=== PATIENT | female | born 1965 | race Two or more races ===

== ENCOUNTER 2020-07-17 11:45 | Emergency (ER) | payer BC, MEDICAID ==
[~2020-07-17] VITALS: Ht 167.6 cm; Wt 79.4 kg
[2020-07-17] MEDS ORDERED: SODIUM CHLORIDE 0.9% 500 ML IVB ONE (12:15)
[2020-07-17] MEDS ORDERED: PROCHLORPERAZINE EDISYLATE 5 MG/ML 2ML VIAL IV ONE (12:15)
[2020-07-17 14:19] LABS: Basophils # (auto) 0 10 ^3/uL (0-0.2); Basophils % (auto) 0.3 % (0.0-2.0); Eosinophils # (auto) 0 10 ^3/uL (0-0.8); Hemoglobin 11.4 g/dL (12.2-16.2); Lymphocytes # (auto) 0.8 10 ^3/uL (0.4-5.4); Monocytes # (auto) 0.3 10 ^3/uL (0-1.3); Monocytes % (auto) 3.5 % (0.0-12.0); Neutrophils % (auto) 87.5 % (37.0-80.0)
[2020-07-17 14:21] LABS: Eosinophils % (auto) 0.1 % (0.0-7.0); Lymphocytes % (auto) 8.6 % (10.0-50.0); Mean Corpuscular Hemoglobin 26.4 pg (28.0-32.0); Mean Corpuscular Hgb Conc. 32.5 g/dL (32.0-36.0); Mean Corpuscular Volume 81.1 fL (80.0-100.0); Neutrophils # (auto) 7.8 10 ^3/uL (1.6-8.6); Platelet Count (auto) 313 10^3/uL (140-450); Red Blood Cells 4.32 10^6/uL (4.0-5.20); Red Cell Distribution Width 14.9 % (11.8-14.3); White Blood Cell 8.9 10^3/uL (4.4-10.8)
[2020-07-17 14:38] LABS: Albumin 3.3 g/dL (3.4-5.0); Anion Gap 7 (5-15); Blood Urea Nitrogen 10 mg/dL (7-18); Calcium 8.2 mg/dL (8.5-10.1); Carbon Dioxide 26 mmol/L (21-32); Chloride 107 mmol/L (98-107); Glucose 134 mg/dL (74-106); Magnesium 2.2 mg/dL (1.6-2.6); Potassium 3.9 mmol/L (3.5-5.1); Sodium 140 mmol/L (136-145)
[2020-07-17 14:43] LABS: Alanine Aminotransferase 20 U/L (13-56); Alkaline Phosphatase 113 U/L (45-117); Aspartate Aminotransferase 16 U/L (15-37); BUN/Creatinine Ratio 18.5; Bilirubin, Total 0.2 mg/dL (0.2-1.0); GFR African American 151 mL/min; GFR Non-African American 125 mL/min; Total Protein 6.8 g/dL (6.4-8.2)
[2020-07-17 14:48] VITALS: BP 109/69
== END 2020-07-17 17:17 | disposition home or self-care (01) ==
LOC: ER 11:45 → EDBD 11:45 → ER 17:17
DX: B34.9 Viral infection, unspecified (principal); R11.2 Nausea with vomiting, unspecified; E11.9 Type 2 diabetes mellitus without complications; Z90.49 Acquired absence of other specified parts of digestive tract; Z90.710 Acquired absence of both cervix and uterus; Z88.0 Allergy status to penicillin; Z88.2 Allergy status to sulfonamides
CPT/HCPCS: 36415; 71045; 74176; 80053; 83690; 83735; 84484; 85025; 93005; 96361; 96374; 99285; J0780

== ENCOUNTER 2020-08-08 11:18 | Emergency (ER) | payer MEDICAID ==
[~2020-08-08] VITALS: Ht 160 cm; Wt 81.6 kg
[2020-08-08] MEDS ORDERED: traMADol HCL 50 MG TAB PO ONE (15:15)
[2020-08-08 15:17] VITALS: BP 120/75
== END 2020-08-08 16:23 | disposition home or self-care (01) ==
LOC: ER 11:18
DX: S33.5XXA Sprain of ligaments of lumbar spine, initial encounter (principal); N20.0 Calculus of kidney; E11.9 Type 2 diabetes mellitus without complications; Z90.49 Acquired absence of other specified parts of digestive tract; Z90.710 Acquired absence of both cervix and uterus; Z88.0 Allergy status to penicillin; X58.XXXA Exposure to other specified factors, initial encounter; Y93.89 Activity, other specified; Y92.89 Other specified places as the place of occurrence of the external cause; Y99.8 Other external cause status
CPT/HCPCS: 74176; 81002

== ENCOUNTER 2022-09-06 15:38 | Emergency (ER) | payer MEDICAID ==
[~2022-09-06] VITALS: Ht 160 cm; Wt 77.2 kg
[2022-09-06 15:59] LABS: Basophils # (auto) 0.1 10 ^3/uL (0-0.2); Basophils % (auto) 0.7 % (0.0-2.0); Eosinophils # (auto) 0.1 10 ^3/uL (0-0.8); Hematocrit 38.8 % (36.0-46.0); Hemoglobin 12.7 g/dL (12.2-16.2); Lymphocytes # (auto) 2.1 10 ^3/uL (0.4-5.4); Lymphocytes % (auto) 28.8 % (10.0-50.0); Mean Corpuscular Hemoglobin 28.4 pg (28.0-32.0); Mean Corpuscular Hgb Conc. 32.8 g/dL (32.0-36.0); Mean Corpuscular Volume 86.4 fL (80.0-100.0); Monocytes # (auto) 0.6 10 ^3/uL (0-1.3); Monocytes % (auto) 7.9 % (0.0-12.0); Neutrophils # (auto) 4.4 10 ^3/uL (1.6-8.6); Neutrophils % (auto) 61.6 % (37.0-80.0); Red Blood Cells 4.49 10^6/uL (4.0-5.20); Red Cell Distribution Width 14.1 % (11.8-14.3); White Blood Cell 7.2 10^3/uL (4.4-10.8)
[2022-09-06 16:13] LABS: INR 0.94 (0.9-1.15)
[2022-09-06 16:19] LABS: Albumin 3.9 g/dL (3.4-5.0); Calcium 8.5 mg/dL (8.5-10.1); Magnesium 2.5 mg/dL (1.6-2.6)
[2022-09-06 16:22] LABS: BUN/Creatinine Ratio 16.9 (10.0-20.0); Bilirubin, Total 0.2 mg/dL (0.2-1.0); Total Protein 6.8 g/dL (6.4-8.2)
[2022-09-06 20:03] VITALS: BP 122/78
[2022-09-06] MEDS ORDERED: KETOROLAC TROMETH 60MG/2ML VIAL IM ONE (20:45)
[2022-09-06] MEDS ORDERED: LORazepam 2MG/ML-1ML VIAL IM ONE (20:45)
[2022-09-06] MEDS ORDERED: CYCL-839 PO (20:55)
== END 2022-09-06 21:30 | disposition home or self-care (01) ==
LOC: ER 15:38
DX: M94.0 Chondrocostal junction syndrome [Tietze] (principal); I10 Essential (primary) hypertension; E11.9 Type 2 diabetes mellitus without complications
CPT/HCPCS: 36415; 71045; 80053; 83735; 83880; 84484; 85025; 85610; 85730; 93005; 96372; 99285; J1885; J2060

== ENCOUNTER 2024-12-10 21:35 | Inpatient (IN) | payer MEDICAID ==
[~2024-12-10] VITALS: Ht 162.6 cm; Wt 87.4 kg
[~2024-12-10 21:35] MED LIST: CYCL-839 PO
--- NOTE | 2024-12-10 21:55 | ED.PDOC ---
Musculoskeletal HPI Comments 59-year-old female that came to ER via EMS for lower extremity issues. History of diabetes, states for the past 3 days she has been having lower back pain. Few hours ago, started experiencing weakness on her left lower extremity, unable to stand on it, with a associated leg cramping and urinary incontinence. Blood sugar on scene was 202. Patient does have history of chronic back issues, she denies any fever, chills, night sweats, groin numbness, history of cancer, history of back procedure. REVIEW OF SYSTEMS: General: No fever, no chills, or fatigue HEENT: No sore throat, no earache, no congestion, no neck pain. Cardiac: No chest pain. No palpitations. Lungs: No shortness of breath, no cough. GI: No nausea, no vomiting, no diarrhea, no constipation, no abdominal pain : No dysuria, frequency, or urgency. No hematuria. (+) incontinence Musculoskeletal: No joint pain , no joint swelling, no extremity edema. (+) back pain, (+) LLE weakness Skin: No rash, no itching. Neuro: No headache, no dizziness, no weakness EXAM: General: Awake, alert and oriented. No acute distress. Skin: Skin in warm, dry and intact. Appropriate color for ethnicity. HEENT: The head is normocephalic and atraumatic. Conjunctivae are clear without exudates or hemorrhage. Sclera is non-icteric. EOM are intact. No signs of nystagmus. Eyelids are normal in appearance without swelling or lesions. Oral mucosa is pink and moist Neck: The neck is supple with normal range of motion. No JVD. Cardiac: Heart rate and rhythm are normal. No murmurs, gallops, or rubs are auscultated. Respiratory: No signs of respiratory distress. Lung sounds are clear in all lobes bilaterally without rales, rhonchi, or wheezes. Abdominal: Abdomen is soft, non-tender without distention. Bowel sounds are present and normoactive in all four quadrants. Extremities: Upper and lower extremities are atraumatic in appearance without deformity or edema. Neurological: The patient is awake, alert and oriented to person, place, and time with normal speech. Speech is clear. There is no facial asymmetry. Sensation in face, upper extremities and lower extremities intact and symmetric bilaterally. Strength 2/5 LLE. Strength 5/5 in B/L UE, RLE. Psychiatric: Appropriate mood and affect. Good judgement and insight Chief Complaint: Lower Extremity Time Seen by MD: 22:00 Primary Care Provider: LEBRON Elizabeth Notes: Software Quality Assurance Analyst Notes Allergies: Uncoded Allergies: PENICILLIN (Allergy, Unknown, 08/12/20) SULFA (Allergy, Unknown, 08/12/20) Home Meds Active Scripts Cyclobenzaprine Hcl (Cyclobenzaprine Hcl) 10 Mg Tab, 10 MG PO Q8HPRN PRN, #20 TAB Prov:TOBY SOLORZANO MD 09/06/22 Information Source: Patient, Emergency Med Personnel Mode of Arrival: EMS Extremity Location: Leg (Left lower) Past Medical History PAST MEDICAL HISTORY: Arthritis, CVA, DM Past Medical History (Other): Bulging disc Surgical History: Cholecystectomy, Hysterectomy HEARING CARE PRACTITIONER History: No Pertinent HEARING CARE PRACTITIONER History Family History Family History: Family hx of DM Social History Smoker: Non-Smoker Alcohol: Denies ETOH Use Drugs: Denies Drug Use Lives In: Home Was a procedure done? Was a procedure done?: No Differential Diagnosis EXT Differential Diagnosis: Sprain, Strain, Neurovascular injury, Arthritis, Other (Chronic back pain, cauda equina syndrome, spinal stenosis, CVA, neurologic disorder, electrolyte imbalance, other) X-Ray, Labs, Meds, VS Vital Signs Date Time Temp Pulse Resp B/P (MAP) Pulse Ox O2 Delivery O2 Flow Rate FiO2 12/10/24 21:35 97.7 105 18 121/70 98 97.7 Lab Test 12/10/24 22:19 Range/Units White Blood Count 6.3 4.4-10.8 10^3/uL Red Blood Count 4.11 4.0-5.20 10^6/uL Hemoglobin 12.6 12.2-16.2 g/dL Hematocrit 37.2 36.0-46.0 % Mean Corpuscular Volume 90.4 80.0-100.0 fL Mean Corpuscular Hemoglobin 30.5 28.0-32.0 pg Mean Corpuscular Hemoglobin Concent 33.8 32.0-36.0 g/dL Red Cell Distribution Width 13.7 11.8-14.3 % Platelet Count 258 140-450 10^3/uL Mean Platelet Volume 9.3 6.9-10.8 fL Neutrophils (%) (Auto) 63.8 37.0-80.0 % Lymphocytes (%) (Auto) 24.4 10.0-50.0 % Monocytes (%) (Auto) 9.8 0.0-12.0 % Eosinophils (%) (Auto) 1.6 0.0-7.0 % Basophils (%) (Auto) 0.4 0.0-2.0 % Neutrophils # (Auto) 4.0 1.6-8.6 10 ^3/uL Lymphocytes # (Auto) 1.5 0.4-5.4 10 ^3/uL Monocytes # (Auto) 0.6 0-1.3 10 ^3/uL Eosinophils # (Auto) 0.1 0-0.8 10 ^3/uL Basophils # (Auto) 0 0-0.2 10 ^3/uL Nucleated Red Blood Cells 0.0 % Sodium Level 146 H 136-145 mmol/L Potassium Level 3.5 3.5-5.1 mmol/L Chloride Level 111 H 98-107 mmol/L Carbon Dioxide Level 25 20-31 mmol/L Anion Gap 10 5-15 Blood Urea Nitrogen 12 9-23 mg/dL Creatinine 0.73 0.550-1.02 mg/dL Glomerular Filtration Rate Calc 94 >90 mL/min BUN/Creatinine Ratio 16.4 10.0-20.0 Serum Glucose 65 L 74-106 mg/dL Hemoglobin A1c Pending Calcium Level 9.3 8.7-10.4 mg/dL Total Bilirubin 0.2 0.2-1.0 mg/dL Aspartate Amino Transferase (AST) 21 13-40 U/L Alanine Aminotransferase (ALT) 20 7-40 U/L Alkaline Phosphatase 119 H 46-116 U/L C-Reactive Protein High Sensitivity 0.06 <1.0 mg/dL Total Protein 6.9 5.7-8.2 g/dL Albumin 4.3 3.2-4.8 g/dL Current Medications Medications (Trade) Dose Ordered Sig/Cheryl Route Start Time Stop Time Status Last Admin Methylprednisolone Sodium Succinate (Solu Medrol) 125 mg ONCE ONCE IV 12/10/24 22:00 12/10/24 22:01 DC 12/10/24 23:57 Sodium Chloride 1,000 ml @ 1,000 mls/hr Q1H ONCE IV 12/10/24 22:00 12/10/24 22:59 DC 12/10/24 23:57 Time of 1ST Reevaluation: 21:57 Reevaluation 1ST: Unchanged Patient Education/Counseling: Need For Follow Up Family Education/Counseling: No Family Present Departure 1 Departure Time of Disposition: 23:35 Impression: Primary Impression: Left leg weakness Disposition: ADMITTED INPATIENT Condition: Stable Comments 59-year-old female with left lower extremity weakness. No other weakness, vision changes or speech changes. Sensation intact. CT head without contrast negative for CVA. CT lumbar spine negative for any Sign of spinal stenosis. Patient admitted to hospitalist service for further treatment, evaluation and monitoring. Extensive evaluation was performed in attempt to identify or rule out: (See differential diagnosis section) The following tests were ordered, and results were reviewed by me and discussed with patient: (See diagnostic results section) Additional information was gathered from interviewing the following independent historians: EMS personnel Decision regarding hospitalization or escalation of hospital level of care: Risk and benefits of admission for further treatment of patient's condition was considered. Due to patient's current clinical condition, high risk of decline and poor outcome if discharged and need for further inpatient management and monitoring, patient will be admitted to the hospital. Discussed with patient. Critical Care Note Critical Care Time?: No Stability Stability form required: No Heart Score Heart Score: Heart Score Response (Comments) Value History N/A 0 EKG N/A 0 Age N/A 0 Risk Factors N/A 0 Troponin N/A 0 Total 0 I personally scribed for JONO MILLS MD ([email or web address]) on 12/10/24 at 21:55. Electronically submitted by Nathaniel Murguia ([facility]). I personally scribed for JONO MILLS MD ([email or web address]) on 12/10/24 at 22:01. Electronically submitted by Nathaniel Murguia ([facility]). JONO MILLS MD Dec 10, 2024 21:55
[2024-12-10 22:28] LABS: Hematocrit 37.2 % (36.0-46.0); Hemoglobin 12.6 g/dL (12.2-16.2); Mean Corpuscular Hemoglobin 30.5 pg (28.0-32.0); Mean Corpuscular Volume 90.4 fL (80.0-100.0); Nucleated Red Blood Cells % 0.0 %
--- NOTE | 2024-12-10 22:43 | DVH ---
EXAM: CT HEAD WITHOUT CONTRAST INDICATION: Low back pain, LLE weakness, incontinence. r/o CVA/MAss TECHNIQUE: CT of the head without intravenous contrast. Radiation Dose Information: CT Dose: CTDI volume is 54.4 mGy. Dose-length product is 963.24 mGy*cm The dose indicators for CT are the volume Computed Tomography (CT) Dose Index (CTDIvol) and the Dose Length Product (DLP), and are measured in units of mGy and mGy-cm, respectively. These indicators are not patient dose, but values generated from the CT scanner acquisition factors. The report includes radiation exposure data for exposures received during this examination. COMPARISON: None FINDINGS: There is no evidence of acute intracranial hemorrhage, extra-axial collection, mass effect, midline s hift, herniation or hydrocephalus. The ventricles, sulci and cisterns are age appropriate. The navarro-white differentiation is intact. The visualized paranasal sinuses and mastoid air cells are clear. The surrounding soft tissues and osseous structures are unremarkable. IMPRESSION: 1. No acute intracranial abnormality.
--- NOTE | 2024-12-10 22:45 | DVH ---
CT LS SPINE WO CONTRAST Date: 12/10/2024 10:05 PM History: Low back pain, LLE weakn, incontinence, r/o CE, SEA Comparison: None TECHNIQUE: Multiple axial CT images of the lumbosacral spine were obtained using bone algorithm. Axial and coron al reformatting was done. Bone and soft tissue windows were reviewed. Radiation Dose Information: CT Dose: CTDI volume is 37.84 mGy. Dose-length product is 1312.75 mGy*cm FINDINGS: No CT evidence of definite acute fracture, spinal dislocation, or significant appearing acute subluxa tion is seen. The visualized paraspinal soft tissues are grossly unremarkable. T12-L1 There is no evidence of central spinal canal or neuroforaminal stenosis. L1-L2 There is no evidence of central spinal canal or neuroforaminal stenosis. L2-L3 There is no evidence of central spinal canal or neuroforaminal stenosis. L3-L4 There is no evidence of central spinal canal or neuroforaminal stenosis. L4-L5 There is no evidence of central spinal canal or neuroforaminal stenosis. L5-S1 There is no evidence of central spinal canal or neuroforaminal stenosis. IMPRESSION: 1. No definite CT evidence of acute fracture or dislocation of the bony lumbar spine. 2. All CT scans at this medical facility are performed using dose modulation techniques as appropriate to a performed exam including the following: Automated exposure control was utilized; adjustment of t he MA and/or KV according to patient size; and use of iterative reconstruction technique.
[2024-12-10 22:54] LABS: Alanine Aminotransferase 20 U/L (7-40); Albumin 4.3 g/dL (3.2-4.8); Anion Gap 10 (5-15); BUN/Creatinine Ratio 16.4 (10.0-20.0); Blood Urea Nitrogen 12 mg/dL (9-23); Calcium 9.3 mg/dL (8.7-10.4); Carbon Dioxide 25 mmol/L (20-31); Potassium 3.5 mmol/L (3.5-5.1); Total Protein 6.9 g/dL (5.7-8.2)
[2024-12-10 23:01] LABS: Alkaline Phosphatase 119 U/L (46-116); Bilirubin, Total 0.2 mg/dL (0.2-1.0); Chloride 111 mmol/L (98-107); Glucose 65 mg/dL (74-106); Sodium 146 mmol/L (136-145)
[2024-12-10] MEDS: SODIUM CHLORIDE 0.9% 1,000 ML IV ONE (23:57)
[2024-12-10] MEDS: methylPREDNISolone SOD SUCC 125 MG/2 ML VL IV ONE (23:57)
--- NOTE | 2024-12-10 23:59 | DVHHPRES ---
History of Present Illness Resident Creating Document: ROXANE HARMAN History of Present Illness Flavia Celis is a 59-year-old female patient who presents to ED with chief complaint of left lower limb heaviness, weakness, cramping, erythema and pain which was triggered after she was walking in her home, she felt she had no control her lower left limb and could not stand up, prompting her visit. Patient does mention recent long trip which she just got back from today (over 12 hours), where she stopped multiple times due to urinary frequency/urinary incontinence. Denies any other associated symptoms (dyspnea, chest pain and fever) Past medical history: Arthritis, fibromyalgia, diabetes, questionable IBS, hiatal hernia, peptic ulcer, colonic tear which was bleeding and required colonoscopic treatment in [place], multiple UTIs Surgical history: Cholecystectomy, hysterectomy, 2014 gastric bypass, C-sections x2, colonoscopy two years ago with treatment of colonic tear Family history: CVA in brother and mother, mother also has heart disease, multiple family members have diabetes Social history: [place] (next of kin is her brother). Denies current tobacco, alcohol and other drug abuse Allergies: Seasonal, penicillin and sulfa antibiotics. Home medication: Motrin p.r.n. , multivitamin Patient seen and examined at bedside. Currently has no new complaints. Still presents weakness in lower left limb Past Medical History Per HPI Past Surgical History Per HPI Family History Per HPI Past Social History Per HPI Review of Systems Review of Systems Per HPI Allergies: Uncoded Allergies: PENICILLIN (Allergy, Unknown, 08/12/20) SULFA (Allergy, Unknown, 08/12/20) Exam Vital Signs Vital Signs Date Time Temp Pulse Resp B/P (MAP) Pulse Ox O2 Delivery O2 Flow Rate FiO2 12/10/24 21:35 97.7 105 18 121/70 98 97.7 Exam Patient lying in bed, in no acute distress General: Lucid, afebrile, mucosae are moist Cardiovascular: Normal S1 and S2. No murmurs, gallops or rubs Respiratory: Normal ventilation mechanics. Clear lung sounds on auscultation Abdomen: Soft, nontender, no organomegaly, normal bowel sounds MSK/skin: Mobilizes 4 limbs. Skin is dry and warm. Bilateral infrapatellar lower limb swelling with pitting edema +1, nor erythema, can mobilize with no problem. Neurological: Oriented in 3 spheres. No motor no sensitive deficits. Pupils are isocoric and reactive Labs/Xrays Labs Test 12/10/24 22:19 Range/Units White Blood Count 6.3 4.4-10.8 10^3/uL Red Blood Count 4.11 4.0-5.20 10^6/uL Hemoglobin 12.6 12.2-16.2 g/dL Hematocrit 37.2 36.0-46.0 % Mean Corpuscular Volume 90.4 80.0-100.0 fL Mean Corpuscular Hemoglobin 30.5 28.0-32.0 pg Mean Corpuscular Hemoglobin Concent 33.8 32.0-36.0 g/dL Red Cell Distribution Width 13.7 11.8-14.3 % Platelet Count 258 140-450 10^3/uL Mean Platelet Volume 9.3 6.9-10.8 fL Neutrophils (%) (Auto) 63.8 37.0-80.0 % Lymphocytes (%) (Auto) 24.4 10.0-50.0 % Monocytes (%) (Auto) 9.8 0.0-12.0 % Eosinophils (%) (Auto) 1.6 0.0-7.0 % Basophils (%) (Auto) 0.4 0.0-2.0 % Neutrophils # (Auto) 4.0 1.6-8.6 10 ^3/uL Lymphocytes # (Auto) 1.5 0.4-5.4 10 ^3/uL Monocytes # (Auto) 0.6 0-1.3 10 ^3/uL Eosinophils # (Auto) 0.1 0-0.8 10 ^3/uL Basophils # (Auto) 0 0-0.2 10 ^3/uL Nucleated Red Blood Cells 0.0 % Sodium Level 146 H 136-145 mmol/L Potassium Level 3.5 3.5-5.1 mmol/L Chloride Level 111 H 98-107 mmol/L Carbon Dioxide Level 25 20-31 mmol/L Anion Gap 10 5-15 Blood Urea Nitrogen 12 9-23 mg/dL Creatinine 0.73 0.550-1.02 mg/dL Glomerular Filtration Rate Calc 94 >90 mL/min BUN/Creatinine Ratio 16.4 10.0-20.0 Serum Glucose 65 L 74-106 mg/dL Calcium Level 9.3 8.7-10.4 mg/dL Total Bilirubin 0.2 0.2-1.0 mg/dL Aspartate Amino Transferase (AST) 21 13-40 U/L Alanine Aminotransferase (ALT) 20 7-40 U/L Alkaline Phosphatase 119 H 46-116 U/L C-Reactive Protein High Sensitivity 0.06 <1.0 mg/dL Total Protein 6.9 5.7-8.2 g/dL Albumin 4.3 3.2-4.8 g/dL SEPSIS Sepsis Screen Date sepsis recognized/suspect: Dec 10, 2024 Time Sepsis recognized/suspect: 2134 Recent Procedure: No On Antibiotic Therapy: No Respiratory Rate >20: No Heart Rate >90: Yes Temp<36 C (96.8 F) or >38.3 C: No SBP <90 or MAP <65 mmHG: No New Acute Mental Status Change: No Is the patient on CPAP, BIPAP,: No Physician Orders Head Without Contrast (12/10/24 21:56) Ls Spine Wo Contrast (12/10/24 21:56) Urinalysis (12/10/24 21:56) Admit (12/10/24 23:55) Code Status (12/10/24 23:55) Complete Blood Count (12/11/24 04:00) Comprehensive Metabolic Panel (12/11/24 04:00) Npo (Nothing By Mouth) Diet (12/11/24 Breakfast) Echo 2d Mode Cardiac Dop (12/10/24 23:55) Carotid Duplx W Color Dop (12/10/24 23:55) Lovenox 40mg (12/11/24 10:00) Oxygen By Nasal Cannula (12/10/24 23:55) Stat Ekg For Chest Pain (12/10/24 23:55) Notify Of Changes From Base (12/10/24 23:55) Rubber Splicer For 24 Hours (12/10/24 23:55) Emergency Dysrhythmia Protocol (12/10/24 23:55) Rhythm Strips Once Every Shift (12/10/24 23:55) Vital Signs Date Time Temp Pulse Resp B/P (MAP) Pulse Ox O2 Delivery O2 Flow Rate FiO2 12/10/24 21:35 97.7 105 18 121/70 98 97.7 Laboratory Tests Test 12/10/24 22:19 White Blood Count 6.3 10^3/uL (4.4-10.8) Assessment/Plan Assessment/Plan Questionable CVA Ruled out hemorrhagic stroke Ruled out cauda equina syndrome Completed head CT which ruled out acute intracranial pathology Completed lumbar spine CT which ruled out severe stenosis If deemed necessary, we will evaluate need for MRI. Currently patient's symptoms have improved dramatically Initiated aspirin atorvastatin, evaluate requirement of continued this treatment. Patient does have history of peptic ulcer. Rule out bilateral lower limb DVT Patient had recent long travel. Questionable UTI History of multiple UTIs Ordered urine analysis Hypernatremia Hyperchloremia Mild hypoglycemia Currently on D5W Monitor BNP Fibromyalgia Questionable IBS Status post gastric bypass surgery 2013 Hiatal hernia Peptic ulcer History of colonic tear status post colonoscopy treatment Patient currently on pantoprazole IV b.i.d. Indicated enoxaparin for DVT prophylaxis. Patient does have history of GI bleed, we will monitor H&H Optimize pain management Diabetes -controlled (hemoglobin A1c 6.5%) Currently on insulin sliding scale mild (had a reading of hypoglycemia (65) Goals of care discussed with patient for over 18 minutes: Full code status Discussed plan with Dr. Mackay, patient and nurses: Patient will be admitted to telemetry, questionable CVA, head CT was negative. Ordered lower limb ultrasound to rule out DVT. Optimizing electrolytes. Plan discussed with: Patient, Daughter, Other (Nurses) My Orders Orders - ROXANE HARMAN RESIDENT Procedure Category Date Status Time Admit ADMIT 12/10/24 Verified 23:55 Code Status CODE 12/10/24 Verified 23:55 Complete Blood Count LAB 12/11/24 Verified 04:00 Comprehensive LAB 12/11/24 Verified Metabolic Panel 04:00 Npo (Nothing By DIET 12/11/24 Verified Mouth) Diet Breakfast Echo 2d Mode Cardiac US 12/10/24 Verified DOP 23:55 Carotid Duplx W Color US 12/10/24 Verified DOP 23:55 Lovenox 40mg PHA 12/11/24 Verified 10:00 Oxygen By Nasal RT 12/10/24 Verified Cannula 23:55 Stat Ekg For Chest [facility] 12/10/24 Verified Pain 23:55 Notify Of Changes [facility] 12/10/24 Verified From Base 23:55 Rubber Splicer For [facility] 12/10/24 Verified 24 Hours 23:55 Emergency Dysrhythmia [facility] 12/10/24 Verified Protocol 23:55 Rhythm Strips Once [facility] 12/10/24 Verified Every Shift 23:55 Date of Service: Dec 10, 2024 Billing Provider: RANDA MACKAY MD Common Visit Codes: 51854-QVMPKFA INP/OBS CARE (HIGH) Secondary Visit Codes: [id number]-[id number] CARE PLAN 30 MINUTES ROXANE HARMAN RESIDENT Dec 10, 2024 23:58
[2024-12-11] MEDS: D5W 5% 1,000 ML IV SCH (00:45)
[2024-12-11 00:56] LABS: INR 0.97 (0.9-1.15); Partial Thromboplastin Time 22.4 SEC (24.5-34.5); Prothrombin Time 10.3 sec (9.3-11.8)
--- NOTE | 2024-12-11 01:01 | DVH ---
CHEST RADIOGRAPH Indication: Presyncope Technique: Single frontal view of the chest was obtained COMPARISON: XY CHEST XRAY 1 VIEW on DOS: 09/06/22, CHEST PORTABLE on DOS: 07/17/20 FINDINGS: Lines and Tubes: None Lungs: Clear Pleura: No effusion. No pneumothorax. Cardiomediastinal contours: Unremarkable Bones: Unremarkable IMPRESSION: 1. No acute disease.
[2024-12-11 01:46] LABS: Magnesium 2.0 mg/dL (1.6-2.6)
[2024-12-11 01:48] LABS: Lipase 54.0 U/L (12-53)
[2024-12-11 01:58] LABS: Triglycerides 88.0 mg/dL (< 150)
[2024-12-11 02:00] LABS: Cholesterol 129.0 mg/dL (< 200); HDL Cholesterol 49.0 mg/dL (40-59)
[2024-12-11] MEDS ORDERED: DEXTROSE (50%) 50ML SYRG IV PRN ×2 (02:30→21:45)
[2024-12-11] MEDS: PANTOPRAZOLE 40 MG/10 ML VIAL INJ IV ONE (02:51)
[2024-12-11 04:33] LABS: Hematocrit 38.2 % (36.0-46.0); Hemoglobin 12.9 g/dL (12.2-16.2); Mean Corpuscular Hemoglobin 30.5 pg (28.0-32.0); Mean Corpuscular Volume 90.5 fL (80.0-100.0); Nucleated Red Blood Cells % 0.0 %
[2024-12-11 04:42] LABS: Alanine Aminotransferase 20 U/L (7-40); Albumin 4.4 g/dL (3.2-4.8); Alkaline Phosphatase 112 U/L (46-116); Anion Gap 12 (5-15); BUN/Creatinine Ratio 14.1 (10.0-20.0); Calcium 9.0 mg/dL (8.7-10.4); Carbon Dioxide 21 mmol/L (20-31); Potassium 4.0 mmol/L (3.5-5.1); Sodium 142 mmol/L (136-145); Total Protein 7.0 g/dL (5.7-8.2)
[2024-12-11 04:50] LABS: Bilirubin, Total 0.2 mg/dL (0.2-1.0); Blood Urea Nitrogen 9 mg/dL (9-23); Chloride 109 mmol/L (98-107); Glucose 196 mg/dL (74-106)
[2024-12-11 05:14] LABS: Urine Protein, UAD Negative (Negative)
[2024-12-11 05:22] LABS: Amphetamine Screen, Urine Neg (NEGATIVE); Barbiturate Scree,Urine Neg (NEGATIVE); Benzodiazephine Screen, Urine Neg (NEGATIVE); Cannabinoid Screen, Urine Neg (NEGATIVE); Cocaine Screen, Urine Neg (NEGATIVE); Opiate Scree,Urine Neg (NEGATIVE); Phencyclidine Screen, Urine Neg (NEGATIVE)
[2024-12-11 05:31] VITALS: BP 106/63; PULSE 65; RESP 15; RESP 16; TEMP 97.5; O2SAT 92
[2024-12-11] MEDS: InsuLIN REG 1unit/0.01ml Soln (100units/ml) SC SCH ×2 (07:00→22:44)
[2024-12-11] MEDS: ACCU-CHEK COMFORT CURVE STRIP VI SCH ×2 (07:00→22:37)
[2024-12-11 07:30] VITALS: PULSE 65; RESP 18; O2SAT 97
[2024-12-11] MEDS: ENOXAPARIN SOD 40 MG/0.4 ML SYRINGE SC SCH (09:54)
[2024-12-11] MEDS: PANTOPRAZOLE 40 MG/10 ML VIAL INJ IV SCH (09:54)
[2024-12-11] MEDS ORDERED: ONDANSETRON HCL 4 MG/2 ML VIAL IV PRN (11:00)
--- NOTE | 2024-12-11 12:32 | DVH ---
INDICATION: UTI TECHNIQUE: Multiple real-time sonographic images of the kidneys and bladder were obtained. COMPARISON: None FINDINGS: RIGHT KIDNEY: Measures 11 cm. Normal in echogenicity. No mass. No urinary stones. No hydronephrosis. LEFT KIDNEY: Measures 10.7 cm. Normal in echogenicity. No mass. No urinary stones. No hydronephrosi s. BLADDER: unremarkable. IMPRESSION: 1. Unremarkable examination of the kidneys.
--- NOTE | 2024-12-11 12:44 | DVH ---
Bilateral lower extremity venous duplex Clinical History: Bilateral lower limb swelling Comparison: None Technique: Duplex Doppler evaluation of the deep venous systems of both lower extremities from the common femora l veins to the popliteal veins including color Doppler and spectral/pulsed waveform analysis was perf ormed. Findings: RIGHT SIDE: The common femoral vein demonstrates appropriate compressibility and waveform variability. There is compressibility/patency of the great saphenous vein at the proximal thigh. The femoral vein demonstrates appropriate compressibility and waveform variability. The deep femoral vein demonstrates appropriate compressibility and waveform variability. The popliteal vein demonstrates appropriate compressibility and waveform variability. There is normal compressibility at the tibioperoneal trunk. LEFT SIDE: The common femoral vein demonstrates appropriate compressibility and waveform variability. There is compressibility/patency of the great saphenous vein at the proximal thigh. The femoral vein demonstrates appropriate compressibility and waveform variability. The deep femoral vein demonstrates appropriate compressibility and waveform variability. The popliteal vein demonstrates appropriate compressibility and waveform variability. There is normal compressibility at the tibioperoneal trunk. Impression: 1. No right or left femoropopliteal venous thrombosis.
--- NOTE | 2024-12-11 12:44 | DVH ---
Carotid Duplex Date: 12/11/2024 11:59 AM Clinical History: presyncope Comparison: None Technique: Duplex Doppler evaluation of the extracranial carotid and vertebral arteries including col or Doppler and spectral/pulsed waveform analysis was performed. Findings: RIGHT SIDE: The peak systolic velocities are 75 cm/s in the distal CCA and 116 cm/s in the proximal ICA.The ICA/C CA ratio is 1.5. The external carotid artery is patent with peak systolic velocity of 74 cm/s proximally. There is appropriate antegrade flow in the right vertebral artery. LEFT SIDE: The peak systolic velocities are 86 cm/s in the distal CCA and 72 cm/s in the proximal ICA. The ICA/ CCA ratio is 0.8. The external carotid artery is patent with peak systolic velocity of 98 cm/s proximally. There is appropriate antegrade flow in the left vertebral artery. IMPRESSION: 1. No hemodynamically significant stenosis noted in the right carotid system. 2. No hemodynamically significant stenosis noted in the left carotid system. 3. Reference: Radiology 2003; [id number]
--- NOTE | 2024-12-11 13:22 | DVHPN2 ---
Subjective c/o cramps and weakness in left lower extremity intermittently/no recent trauma/remote fall/ also c/o frequency of urination Changes from previous H/P or p: No Changes Objective Vitals Vital Signs Date Time Temp Pulse Resp B/P (MAP) Pulse Ox O2 Delivery O2 Flow Rate FiO2 12/11/24 09:30 97.9 76 19 102/54 (70) 96 97.9 12/11/24 07:30 Room Air* 0 21 Intake/Output Intake and Output 12/11/24 07:00 Intake Total 1100 ml Balance 1100 ml Intake IV Total 1100 ml General Appearance: Alert, Oriented X3, Cooperative, No acute distress Lungs: Clear to auscultation, Normal air movement Cardiovascular: Regular rate, Normal S1, Normal S2 Abdomen: Normal bowel sounds, Soft, No tenderness, No hepatospenomegaly, No masses Musculoskeletal: Normal sensory function, Normal motor function Neuro: Normal speech, Strength at 5/5 X4 ext, Normal tone, Sensation intact, C ranial nerves 3-12 NL, Other (minimal weakness big toe dorsiflexion) Medications Current Medications Medications Dose Ordered Sig/Cheryl Route Start Time Stop Time Status Last Admin Dose Admin Enoxaparin Sodium 40 mg DAILY SC 12/11/24 10:00 12/11/24 09:54 40 MG Dextrose 1,000 ml @ 100 mls/hr Q10H IV 12/11/24 00:00 12/11/24 10:05 100 MLS/HR Pantoprazole Sodium 40 mg BID IV 12/11/24 10:00 12/11/24 09:54 40 MG Diagnostic Test (Pha) 1 strip ACHS 12/11/24 07:00 12/11/24 11:32 1 STRIP Insulin Human Regular ACHS SC 12/11/24 07:00 12/11/24 07:00 3 UNITS Dextrose 50 ml UD PRN IV 12/11/24 02:30 Aspirin 81 mg DAILY PO 12/11/24 10:00 12/11/24 09:54 81 MG Atorvastatin Calcium 40 mg HS PO 12/11/24 22:00 Ondansetron HCl 4 mg Q4HPRN PRN IV 12/11/24 11:00 Levofloxacin/ Dextrose 100 ml @ 100 mls/hr DAILY IV 12/12/24 10:00 Laboratory Results Laboratory Tests 12/11/24 04:14 Chemistry Test 12/10/24 22:19 12/11/24 00:20 12/11/24 04:14 Albumin 4.3 g/dL (3.2-4.8) 4.4 g/dL (3.2-4.8) Calcium Level 9.3 mg/dL (8.7-10.4) 9.0 mg/dL (8.7-10.4) Total Protein 6.9 g/dL (5.7-8.2) 7.0 g/dL (5.7-8.2) Magnesium Level 2.0 mg/dL (1.6-2.6) Phosphorus Level 4.1 mg/dL (2.4-5.1) Coagulation Test 12/11/24 00:20 Prothrombin Time 10.3 sec (9.3-11.8) Prothrombin Time INR 0.97 (0.9-1.15) Activated Partial Thromboplast Time 22.4 SEC (24.5-34.5) L Lipid panel Test 12/11/24 00:20 Cholesterol Level 129 mg/dL (< 200) HDL Cholesterol 49 mg/dL (40-59) Lipase 54 U/L (12-53) H Triglycerides Level 88 mg/dL (< 150) LFT Test 12/10/24 22:19 12/11/24 04:14 Alanine Aminotransferase (ALT) 20 U/L (7-40) 20 U/L (7-40) Alkaline Phosphatase 119 U/L (46-116) H 112 U/L (46-116) Aspartate Amino Transferase (AST) 21 U/L (13-40) 21 U/L (13-40) Total Bilirubin 0.2 mg/dL (0.2-1.0) 0.2 mg/dL (0.2-1.0) HgA1c, TSH Test 12/10/24 22:19 12/11/24 00:20 Hemoglobin A1c 6.5 % A1C (<5.7) H Thyroid Stimulating Hormone (TSH) 2.56 uIU/mL (0.55-4.78) Urinalysis Test 12/11/24 04:00 Urine Color Light-yellow (Yellow) Urine Clarity Turbid (Clear) H Urine pH 5.5 (5.0-9.0) Urine Specific [place] 1.025 (1.001-1.035) Urine Protein Negative (Negative) Urine Ketones Trace (Negative) Urine Blood Negative /uL (Negative) Urine Nitrite 2+ (Negative) H Urine Bilirubin Negative (Negative) Urine Urobilinogen Normal mg/dL (Negative) Urine Leukocyte Esterase 3+ /uL (Negative) Urine RBC 4 /hpf (0 - 4) Urine Microscopic WBC 62 /HPF (0-5) H Urine Squamous Epithelial Cells Few /hpf (<5) Urine Calcium Oxalate Crystals Few (None Seen) Urine Bacteria None seen /hpf (None Seen) Urine Hyaline Casts Few /lpf (0 - 2) Urine Mucus Few (None Seen) Urine Glucose 1+ mg/dL (Normal) H Assessment/Plan Assessment/Plan uti- treat/evaluate left leg weakness- intermittent check mri - lumbar spinal stenosis/dd- r/o epidural abcess dm- well controoled h/o gastric bypass Plan discussed with: Patient, Other My Orders Orders - PHILIPPE SALEME MD Procedure Category Date Status Time Ondansetron Hcl PHA 12/11/24 In Process (Zofran) 11:00 Kidney US 12/11/24 Resulted 11:01 Levofloxacin 500mg PHA 12/12/24 In Process (Levaquin 500mg/ 100m 10:00 Date of Service: Dec 11, 2024 Billing Provider: PHILIPPE SALEEM MD Common Visit Codes: [id number] INP/OBS CARE(HIGH) PHILIPPE SALEEM MD Dec 11, 2024 13:22
--- NOTE | 2024-12-11 17:15 | DVH ---
PROCEDURE: MRI LUMBAR SPINE WO CONTRAST INDICATION: lt leg weakness intermittent Exam Date: 12/11/2024 04:26 PM COMPARISON: CT LS SPINE WO CONTRAST on DOS: 12/10/24 TECHNIQUE: MRI lumbar spine without intravenous contrast. FINDINGS: The lumbar alignment is intact. The vertebral body heights and marrow signal are within normal limits . The visualized distal spinal cord and conus medullaris are within normal limits. The conus medullar is appears to terminate within normal limits. The visualized retroperitoneal and paraspinal soft tiss ues are unremarkable. There appears to be mild bilateral renal parapelvic cysts. The following axial levels are detailed below: T12-L1: Unremarkable. L1-L2: Unremarkable. L2-L3: Unremarkable. L3-L4: Unremarkable. L4-L5: Unremarkable. L5-S1: There is a mild central disc protrusion which is not causing significant canal compromise but is causing mild encroachment upon the exiting nerve roots bilaterally. IMPRESSION: 1. Mild central disc protrusion at L5-S1 which is not causing significant canal compromise but is cau sing mild encroachment upon the exiting nerve roots bilaterally.
[2024-12-11 19:30] VITALS: O2SAT 95
[2024-12-11] MEDS ORDERED: ATORVASTATIN 20 MG TAB PO SCH (22:00)
[2024-12-11] MEDS: ACETAMINOPHEN 325 MG TAB PO ONE (22:56)
[2024-12-12 02:00] VITALS: BP 120/61; PULSE 63; RESP 15; O2SAT 95
[2024-12-12 04:00] VITALS: BP 127/73; PULSE 65; RESP 14; O2SAT 93
[2024-12-12 13:00] VITALS: BP 125/77; PULSE 71; RESP 16; TEMP 97.7; O2SAT 95
--- NOTE | 2024-12-12 13:02 | DVHSR ---
APPROVED REPORT EXAM: Two-dimensional and M-mode echocardiogram with Doppler and color Doppler. Blood Pressure: 127/73 mmHg INDICATION Presyncope RISK FACTORS Obesity: Height: 5'4", Weight: 170 DIMENSIONS LVDd4.6 (3.8-5.7cm)LA (2D)4.4 (1.9-4.0cm)Aortic Root3.2 (2.0-3.7cm) LVDs3.2 (2.5-4.0cm)LA (MM) (1.9-4.0cm)Aortic Cusp Exc1.9 (1.5-2.0cm) EF (%) 60.0 (55-70%)Rt. Atrium3.9 (1.9-4.0cm)Asc. Aorta cm IVSd1.1 (0.7-1.1cm)RV (D) (1.8-2.4cm) PWd0.9 (0.7-1.1cm) Mitral Valve MitralMitral Stenosis E wave0.83m/sMV Mean GR.mmHg A wave0.75m/sMV Peak GR.mmHg E/A ratio1.12D MVAcm2 DECEL [id number] 1/2 Timems Aortic Valve Aortic ValveAortic Stenosis V10.74m/Desi Mean GR.2mmHg V21.01m/Desi Peak GR.4mmHg LVOT Diameter2.1 (1.8-2.4cm)Doppler AVA2.54cm2 Pulmonic Valve V20.74m/s Tricuspid Valve TR Velocity2.06m/s [id number] Conclusion lvef 55% grade 1 diaistolic dysfunction normal rv function but RV enlarged mild left atrium enlarged no seere valve abnormalities noted
[2024-12-12] MEDS: HYDROcodone-ACET 5/325MG TAB PO PRN (14:58)
--- NOTE | 2024-12-12 15:08 | DVHPN2 ---
Subjective Resolving left foot drop; no more weakness in left lower extremity Reviewed: Care Plan, H&P, Labs, Medications, Previous Orders, Radiology Changes from previous H/P or p: Changes Objective Vitals Vital Signs Date Time Temp Pulse Resp B/P (MAP) Pulse Ox O2 Delivery O2 Flow Rate FiO2 12/12/24 13:00 97.7 71 16 125/77 (93) 95 97.7 12/12/24 07:30 Room Air* 0 21 Intake/Output Intake and Output 12/12/24 07:00 Intake Total 600 ml Balance 600 ml Intake IV Total 600 ml General Appearance: Alert, Oriented X3, Cooperative, No acute distress Lungs: Clear to auscultation, Normal air movement Cardiovascular: Regular rate, Normal S1, Normal S2 Abdomen: Normal bowel sounds, Soft, No tenderness Neuro: Normal speech, Strength at 5/5 X4 ext, Normal tone, Sensation intact, C ranial nerves 3-12 NL, Reflexes 2+, Other (Could not appreciate any deficits) Psych/Mental Status: Mental status NL, Mood NL Medications Current Medications Medications Dose Ordered Sig/Cheryl Route Start Time Stop Time Status Last Admin Dose Admin Aspirin 81 mg DAILY PO 12/11/24 10:00 12/12/24 09:34 81 MG Levofloxacin/ Dextrose 100 ml @ 100 mls/hr DAILY IV 12/12/24 10:00 12/12/24 09:29 100 MLS/HR Diagnostic Test (Pha) 1 strip ACHS 12/11/24 22:00 12/12/24 12:02 1 STRIP Insulin Human Regular ACHS SC 12/11/24 22:00 12/11/24 22:44 4 UNITS Dextrose 50 ml UD PRN IV 12/11/24 21:45 Acetaminophen/ Hydrocodone Bitart 1 tab Q4HPRN PRN PO 12/12/24 14:30 12/12/24 14:58 1 TAB Laboratory Results Laboratory Tests 12/11/24 04:14 Urinalysis Test 12/11/24 04:00 Urine Color Light-yellow (Yellow) Urine Clarity Turbid (Clear) H Urine pH 5.5 (5.0-9.0) Urine Specific [place] 1.025 (1.001-1.035) Urine Protein Negative (Negative) Urine Ketones Trace (Negative) Urine Blood Negative /uL (Negative) Urine Nitrite 2+ (Negative) H Urine Bilirubin Negative (Negative) Urine Urobilinogen Normal mg/dL (Negative) Urine Leukocyte Esterase 3+ /uL (Negative) Urine RBC 4 /hpf (0 - 4) Urine Microscopic WBC 62 /HPF (0-5) H Urine Squamous Epithelial Cells Few /hpf (<5) Urine Calcium Oxalate Crystals Few (None Seen) Urine Bacteria None seen /hpf (None Seen) Urine Hyaline Casts Few /lpf (0 - 2) Urine Mucus Few (None Seen) Urine Glucose 1+ mg/dL (Normal) H Microbiology Microbiology Date/Time Source Procedure Growth Status 12/11/24 04:00 Voided Urine Urine Culture - Preliminary Resulted 12/11/24 00:25 Blood Blood Culture - Preliminary NO GROWTH AFTER 24 HOURS OF INCUBATION. Resulted Labs and/or images reviewed: Labs reviewed by me, Image(s) reviewed by me Assessment/Plan Assessment/Plan Covering: Left foot drop/left lower extremity weakness due to below; resolving; CVA ruled out Mild central disc protrusion at L5-S1 which is not causing significant canal compromise but is causing mild encroachment upon the exiting nerve roots bilaterally Diabetes mellitus type 2 with hemoglobin A1c of 6.5% Metabolic syndrome with mixed dyslipidemia Grade 1 diastolic dysfunction Suspected UTI Obesity Continue pain management as indicated Started on oral prednisone 40 mg for five days Reviewed lab work including drug screen Reviewed blood cultures and urine culture Reviewed the available imaging studies including echocardiogram, carotid ultrasound, and lumbar spine MRI Continue aspirin and statin Continue insulin management and adjust according to blood glucose monitoring Counseled the patient on the importance of adopting healthy lifestyle with diet and exercise in order to lose weight Continue pain management as needed To follow up with a spine Orthopedic surgery as outpatient Continue levofloxacin in the setting of penicillin allergy Physical therapy is following Telemetry Continue monitoring Goals of care discussed with the patient for 20 minutes; full code Possible discharge tomorrow on oral prednisone and to follow up with spine Orthopedic surgery as outpatient Late Entry. This medical document was created using an electronic medical record system with computerized dictation system. Although this document has been carefully reviewed, there might still be some phonetic and typographical errors. These areas are purely typographical due to imperfections of the software programs, and do not reflect any compromise in the patient's medical care. Plan discussed with: Patient, Other (Nurse) My Orders Orders - NASH CALIXTO MD Procedure Category Date Status Time Hydrocodone-Acet PHA 12/12/24 In Process 5/325mg Tab ([place] 14:30 Date of Service: Dec 12, 2024 Billing Provider: NASH CALIXTO MD Common Visit Codes: [id number] INP/OBS CARE(HIGH) Secondary Visit Codes: [id number] CARE PLAN 30 MINUTES (20 minutes) NASH CALIXTO MD Dec 12, 2024 15:08
[2024-12-12 17:00] VITALS: BP 133/86; PULSE 73; RESP 18; TEMP 98.8; O2SAT 97
[2024-12-12 20:00] VITALS: PULSE 73; RESP 19; O2SAT 95
[2024-12-12 21:00] VITALS: BP_SYST 107; BP_SYST 125; BP_DIAS 57; BP_DIAS 70; PULSE 73; PULSE 88; RESP 18; RESP 19; TEMP 98.2; TEMP 98.5; O2SAT 93
[2024-12-12] MEDS: ACETAMINOPHEN 325 MG TAB PO PRN (21:22)
[2024-12-13] VITALS (8 sets, daily range): BP systolic 106–122; BP diastolic 69–80; PULSE 60–107; RESP 17–20; TEMP 98–98.7; O2SAT 95–96
[2024-12-13] MEDS: predniSONE 20 MG TAB PO SCH (10:12)
[2024-12-13 11:04] LABS: Hematocrit 38.5 % (36.0-46.0); Hemoglobin 13.1 g/dL (12.2-16.2); Mean Corpuscular Hemoglobin 30.5 pg (28.0-32.0); Mean Corpuscular Volume 89.8 fL (80.0-100.0); Nucleated Red Blood Cells % 0.1 %
[2024-12-13 11:19] LABS: Alanine Aminotransferase 15 U/L (7-40); Albumin 4.0 g/dL (3.2-4.8); Alkaline Phosphatase 94 U/L (46-116); Anion Gap 8 (5-15); BUN/Creatinine Ratio 11.7 (10.0-20.0); Calcium 8.8 mg/dL (8.7-10.4); Carbon Dioxide 30 mmol/L (20-31); Chloride 105 mmol/L (98-107); Glucose 101 mg/dL (74-106); Potassium 3.7 mmol/L (3.5-5.1); Sodium 143 mmol/L (136-145); Total Protein 6.3 g/dL (5.7-8.2)
[2024-12-13 11:25] LABS: Bilirubin, Total 0.2 mg/dL (0.2-1.0); Blood Urea Nitrogen 7 mg/dL (9-23)
--- NOTE | 2024-12-13 16:47 | DVHPN2 ---
Subjective Complaints of cramping in the toes earlier but now resolved. Patient is ambulating without issues. No other complaints. Reviewed: Care Plan, H&P, Labs, Medications, Previous Orders, Radiology Changes from previous H/P or p: No Changes Objective Vitals Vital Signs Date Time Temp Pulse Resp B/P (MAP) Pulse Ox O2 Delivery O2 Flow Rate FiO2 12/13/24 13:00 98.0 67 17 116/79 (91) 95 98.0 12/13/24 08:00 Room Air* 0 21 Intake/Output Intake and Output 12/13/24 07:00 Intake Total 720 ml Balance 720 ml Intake Oral 720 ml # Voids 3 # Bowel Movements 1 General Appearance: Alert, Oriented X3, Cooperative, No acute distress Lungs: Clear to auscultation, Normal air movement Cardiovascular: Regular rate, Normal S1, Normal S2 Abdomen: Normal bowel sounds, Soft, No tenderness Neuro: Normal speech, Strength at 5/5 X4 ext, Normal tone, Sensation intact, C ranial nerves 3-12 NL, Reflexes 2+, Other (Could not appreciate any deficits) Psych/Mental Status: Mental status NL, Mood NL Medications Current Medications Medications Dose Ordered Sig/Cheryl Route Start Time Stop Time Status Last Admin Dose Admin Aspirin 81 mg DAILY PO 12/11/24 10:00 12/13/24 10:12 81 MG Diagnostic Test (Pha) 1 strip ACHS 12/11/24 22:00 12/13/24 06:01 1 STRIP Insulin Human Regular ACHS SC 12/11/24 22:00 12/12/24 21:22 2 UNITS Dextrose 50 ml UD PRN IV 12/11/24 21:45 Acetaminophen/ Hydrocodone Bitart 1 tab Q4HPRN PRN PO 12/12/24 14:30 12/12/24 14:58 1 TAB Acetaminophen 650 mg Q4HP PRN PO 12/12/24 17:15 12/13/24 10:28 650 MG Atorvastatin Calcium 40 mg HS PO 12/13/24 22:00 Prednisone 40 mg DAILY PO 12/13/24 10:00 12/18/24 09:59 12/13/24 10:12 40 MG Laboratory Results Laboratory Tests 12/13/24 10:44 Chemistry Test 12/13/24 10:44 Albumin 4.0 g/dL (3.2-4.8) Calcium Level 8.8 mg/dL (8.7-10.4) Total Protein 6.3 g/dL (5.7-8.2) LFT Test 12/13/24 10:44 Alanine Aminotransferase (ALT) 15 U/L (7-40) Alkaline Phosphatase 94 U/L (46-116) Aspartate Amino Transferase (AST) 18 U/L (13-40) Total Bilirubin 0.2 mg/dL (0.2-1.0) Urinalysis Test 12/11/24 04:00 Urine Color Light-yellow (Yellow) Urine Clarity Turbid (Clear) H Urine pH 5.5 (5.0-9.0) Urine Specific [place] 1.025 (1.001-1.035) Urine Protein Negative (Negative) Urine Ketones Trace (Negative) Urine Blood Negative /uL (Negative) Urine Nitrite 2+ (Negative) H Urine Bilirubin Negative (Negative) Urine Urobilinogen Normal mg/dL (Negative) Urine Leukocyte Esterase 3+ /uL (Negative) Urine RBC 4 /hpf (0 - 4) Urine Microscopic WBC 62 /HPF (0-5) H Urine Squamous Epithelial Cells Few /hpf (<5) Urine Calcium Oxalate Crystals Few (None Seen) Urine Bacteria None seen /hpf (None Seen) Urine Hyaline Casts Few /lpf (0 - 2) Urine Mucus Few (None Seen) Urine Glucose 1+ mg/dL (Normal) H Microbiology Microbiology Date/Time Source Procedure Growth Status 12/11/24 04:00 Voided Urine Urine Culture - Final Complete 12/11/24 00:25 Blood Blood Culture - Preliminary NO GROWTH AFTER 48 HOURS OF INCUBATION. Resulted Assessment/Plan Assessment/Plan Left foot drop/left lower extremity weakness due to below; resolving; CVA ruled out Mild central disc protrusion at L5-S1 which is not causing significant canal compromise but is causing mild encroachment upon the exiting nerve roots bilaterally Diabetes mellitus type 2 with hemoglobin A1c of 6.5% Metabolic syndrome with mixed dyslipidemia Grade 1 diastolic dysfunction Suspected UTI Obesity Continue pain management as indicated Started on oral prednisone 40 mg for five days Reviewed lab work including drug screen Reviewed blood cultures and urine culture Reviewed the available imaging studies including echocardiogram, carotid ultrasound, and lumbar spine MRI Continue aspirin and statin Continue insulin management and adjust according to blood glucose monitoring Counseled the patient on the importance of adopting healthy lifestyle with diet and exercise in order to lose weight Continue pain management as needed To follow up with a spine Orthopedic surgery as outpatient Continue levofloxacin in the setting of penicillin allergy Physical therapy is following Telemetry Continue monitoring Her urine cultures mixed adriel. No acute UTI. Patient is afebrile. WBCs normal. We will DC the IV Levaquin. Patient's left ankle and foot examined is normal. Monitor her overnight if she remains stable discharge home tomorrow. Discussed with the patient regarding care plan Plan discussed with: Patient Date of Service: Dec 13, 2024 Billing Provider: KEYANNA HER MD Common Visit Codes: [id number] INP/OBS CARE(MOD) KEYANNA HER MD Dec 13, 2024 16:47
[2024-12-13] MEDS: ATORVASTATIN 20 MG TAB PO SCH (21:06)
[2024-12-14] VITALS (7 sets, daily range): BP systolic 114–132; BP diastolic 71–88; PULSE 63–75; RESP 17–18; TEMP 97.6–99.1; O2SAT 95–99
[2024-12-14] MEDS ORDERED: PRED20TA2 PO (14:38)
--- NOTE | 2024-12-14 14:38 | DVHDS2 ---
Discharge Summary Date of Admission Dec 11, 2024 at 01:55 Date of Discharge: Dec 14, 2024 Labs/Diagnostic Data: Laboratory Results Test 12/14/24 11:42 12/13/24 10:44 12/11/24 04:14 12/11/24 04:00 POC Glucose 131 mg/dl (70-106) White Blood Count 5.0 10^3/uL (4.4-10.8) Red Blood Count 4.29 10^6/uL (4.0-5.20) Hemoglobin 13.1 g/dL (12.2-16.2) Hematocrit 38.5 % (36.0-46.0) Mean Corpuscular Volume 89.8 fL (80.0-100.0) Mean Corpuscular Hemoglobin 30.5 pg (28.0-32.0) Mean Corpuscular Hemoglobin Concent 33.9 g/dL (32.0-36.0) Red Cell Distribution Width 13.3 % (11.8-14.3) Platelet Count 263 10^3/uL (140-450) Mean Platelet Volume 9.5 fL (6.9-10.8) Neutrophils (%) (Auto) 55.0 % (37.0-80.0) Lymphocytes (%) (Auto) 33.6 % (10.0-50.0) Monocytes (%) (Auto) 9.1 % (0.0-12.0) Eosinophils (%) (Auto) 1.8 % (0.0-7.0) Basophils (%) (Auto) 0.5 % (0.0-2.0) Neutrophils # (Auto) 2.8 10 ^3/uL (1.6-8.6) Lymphocytes # (Auto) 1.7 10 ^3/uL (0.4-5.4) Monocytes # (Auto) 0.5 10 ^3/uL (0-1.3) Eosinophils # (Auto) 0.1 10 ^3/uL (0-0.8) Basophils # (Auto) 0 10 ^3/uL (0-0.2) Nucleated Red Blood Cells 0.1 % Sodium Level 143 mmol/L (136-145) Potassium Level 3.7 mmol/L (3.5-5.1) Chloride Level 105 mmol/L (98-107) Carbon Dioxide Level 30 mmol/L (20-31) Anion Gap 8 (5-15) Blood Urea Nitrogen 7 mg/dL (9-23) Creatinine 0.60 mg/dL (0.550-1.02) Glomerular Filtration Rate Calc 103 mL/min (>90) BUN/Creatinine Ratio 11.7 (10.0-20.0) Serum Glucose 101 mg/dL (74-106) Calcium Level 8.8 mg/dL (8.7-10.4) Magnesium Level 1.9 mg/dL (1.6-2.6) Total Bilirubin 0.2 mg/dL (0.2-1.0) Aspartate Amino Transferase (AST) 18 U/L (13-40) Alanine Aminotransferase (ALT) 15 U/L (7-40) Alkaline Phosphatase 94 U/L (46-116) Total Protein 6.3 g/dL (5.7-8.2) Albumin 4.0 g/dL (3.2-4.8) Vitamin B12 Level 495 pg/mL (211-911) Vitamin D 25-Hydroxy 40.2 ng/mL (30.0-100) Urine Color Light-yellow (Yellow) Urine Clarity Turbid (Clear) Urine pH 5.5 (5.0-9.0) Urine Specific [place] 1.025 (1.001-1.035) Urine Protein Negative (Negative) Urine Ketones Trace (Negative) Urine Blood Negative /uL (Negative) Urine Nitrite 2+ (Negative) Urine Bilirubin Negative (Negative) Urine Urobilinogen Normal mg/dL (Negative) Urine Leukocyte Esterase 3+ /uL (Negative) Urine RBC 4 /hpf (0 - 4) Urine Microscopic WBC 62 /HPF (0-5) Urine Squamous Epithelial Cells Few /hpf (<5) Urine Calcium Oxalate Crystals Few (None Seen) Urine Bacteria None seen /hpf (None Seen) Urine Hyaline Casts Few /lpf (0 - 2) Urine Mucus Few (None Seen) Urine Glucose 1+ mg/dL (Normal) Urine Opiates Screen Neg (NEGATIVE) Urine Fentanyl Screen Neg (NEGATIVE) Urine Barbiturates Screen Neg (NEGATIVE) Urine Phencyclidine Screen Neg (NEGATIVE) Urine Amphetamines Screen Neg (NEGATIVE) Urine Benzodiazepines Screen Neg (NEGATIVE) Urine Cocaine Screen Neg (NEGATIVE) Urine Cannabinoids Screen Neg (NEGATIVE) Test 12/11/24 00:20 9/20/25 22:19 Prothrombin Time 10.3 sec (9.3-11.8) Prothrombin Time INR 0.97 (0.9-1.15) Activated Partial Thromboplast Time 22.4 SEC (24.5-34.5) Lactic Acid Level 1.4 mmol/L (0.4-2.0) Phosphorus Level 4.1 mg/dL (2.4-5.1) Ammonia < 10 umol/L (11-32) Triglycerides Level 88 mg/dL (< 150) Cholesterol Level 129 mg/dL (< 200) LDL Cholesterol 78 mg/dL (< 100) HDL Cholesterol 49 mg/dL (40-59) Lipase 54 U/L (12-53) Thyroid Stimulating Hormone (TSH) 2.56 uIU/mL (0.55-4.78) Hemoglobin A1c 6.5 % A1C (<5.7) C-Reactive Protein High Sensitivity 0.06 mg/dL (<1.0) Other Laboratory Tests 12/13/24 10:44 Brief Hx & Hospital Course: Flavia Celis is a 59-year-old female patient who presents to ED with chief complaint of left lower limb heaviness, weakness, cramping, erythema and pain which was triggered after she was walking in her home, she felt she had no control her lower left limb and could not stand up, prompting her visit. Patient does mention recent long trip which she just got back from today (over 12 hours), where she stopped multiple times due to urinary frequency/urinary incontinence. Denies any other associated symptoms (dyspnea, chest pain and fever) Past medical history: Arthritis, fibromyalgia, diabetes, questionable IBS, hiatal hernia, peptic ulcer, colonic tear which was bleeding and required colonoscopic treatment in [place], multiple UTIs Surgical history: Cholecystectomy, hysterectomy, 2014 gastric bypass, C-sections x2, colonoscopy two years ago with treatment of colonic tear He is admitted and underwent evaluations for her compliance. Essentially workup in the hospital remained unremarkable. Her thyroid panel B12 feel it is also normal. Echocardiogram did not reveal any significant acute pathology. Blood and urine cultures have been normal. Her WBCs normal. Given her workup is normal and patient's symptoms resolved it is felt she can be safely discharged home. I have talked with the patient regarding her hospitalization, lab results, discharge medications including side effects, discharge instructions and follow-up plan of care. She has verbalized understanding of these and agree Operations or Procedures EXAM: Two-dimensional and M-mode echocardiogram with Doppler and color Doppler. Blood Pressure: 127/73 mmHg INDICATION Presyncope RISK FACTORS Obesity: Height: 5'4", Weight: 170 DIMENSIONS LVDd 4.6 (3.8-5.7cm) LA (2D) 4.4 (1.9-4.0cm) Aortic Root 3.2 (2.0- 3.7cm) LVDs 3.2 (2.5-4.0cm) LA (MM) (1.9-4.0cm) Aortic Cusp Exc 1.9 (1.5- 2.0cm) EF (%) 60.0 (55-70%) Rt. Atrium 3.9 (1.9-4.0cm) Asc. Aorta cm IVSd 1.1 (0.7-1.1cm) RV (D) (1.8-2.4cm) PWd 0.9 (0.7-1.1cm) Mitral Valve Mitral Mitral Stenosis E wave 0.83m/s MV Mean GR. mmHg A wave 0.75m/s MV Peak GR. mmHg E/A ratio 1.1 2D MVA cm2 DECEL Time 234ms PRESS 1/2 Time ms Aortic Valve Aortic Valve Aortic Stenosis V1 0.74m/s AO Mean GR. 2mmHg V2 1.01m/s AO Peak GR. 4mmHg LVOT Diameter 2.1 (1.8-2.4cm) Doppler SHELDON 2.54cm2 Pulmonic Valve V2 0.74m/s Tricuspid Valve TR Velocity 2.06m/s RVSP 20mmHg Conclusion lvef 55% grade 1 diaistolic dysfunction normal rv function but RV enlarged mild left atrium enlarged no seere valve abnormalities noted SIGNED BY: VARUN LILLY MD SIGNED DATE/TIME: 12/12/24 1302 Condition at Discharge: Stable Final Diagnosis/Problems List Left foot drop/left lower extremity weakness due to below; resolving; CVA ruled out Mild central disc protrusion at L5-S1 which is not causing significant canal compromise but is causing mild encroachment upon the exiting nerve roots bilaterally Diabetes mellitus type 2 with hemoglobin A1c of 6.5% Metabolic syndrome with mixed dyslipidemia Grade 1 diastolic dysfunction Suspected UTI Obesity Discharge Disposition: Home Discharge Instruct/Medications Diet: Consistent carbohydrate, Cardiac 2g Na,low cholest Activity: No Restrictions, As Tolerated Follow Up/Referral: PCP two weeks for management of your problems Medications: as per your discharge medication list Scheduled Prednisone (Prednisone), 20 MG PO [email or web address] Scheduled PRN Cyclobenzaprine Hcl (Cyclobenzaprine Hcl), 10 MG PO Q8HPRN PRN Discharge Statement: "Patient was advised to return to the ER or call 911 if any headaches, dizziness, shortness of breath, chest pain, abdominal pain, bleeding, fevers, or worsening of medical condition. Patient was counseled about treatment plan, medications, possible side effects, patientverbalized understanding. All questions were answered to the best of my ability. This discharge took greater then 30 minutes in planning, reviewing documentation, counseling the patient, and discussing with other team members." ASSESSMENT ASSESSMENT Assessment Left foot drop/left lower extremity weakness due to below; resolving; CVA ruled out Mild central disc protrusion at L5-S1 which is not causing significant canal compromise but is causing mild encroachment upon the exiting nerve roots bilaterally Diabetes mellitus type 2 with hemoglobin A1c of 6.5% Metabolic syndrome with mixed dyslipidemia Grade 1 diastolic dysfunction Suspected UTI Obesity Date of Service: Dec 14, 2024 Billing Provider: KEYANNA HER MD Common Visit Codes: [id number] DISCH DAY >30min KEYANNA HER MD Dec 14, 2024 14:38
== END 2024-12-14 18:20 | disposition home or self-care (01) | DRG 347 ==
LOC: ER 21:35 → EDBD 21:35 → OVERFLOW 23:55 → UNDOADMIN 23:55 → OVERFLOW 12-11 01:55 → TELE-WESTW 12-12 16:36
PROVIDERS: ADMIT Hospitalist; ATTEND Hospitalist
DX: M51.27 Other intervertebral disc displacement, lumbosacral region (principal); E87.0 Hyperosmolality and hypernatremia; E87.8 Other disorders of electrolyte and fluid balance, not elsewhere classified; M79.7 Fibromyalgia; K44.9 Diaphragmatic hernia without obstruction or gangrene; E11.649 Type 2 diabetes mellitus with hypoglycemia without coma; E78.2 Mixed hyperlipidemia; E66.9 Obesity, unspecified; E88.810 Metabolic syndrome; M21.372 Foot drop, left foot; Z88.0 Allergy status to penicillin; Z88.2 Allergy status to sulfonamides; Z86.73 Personal history of transient ischemic attack (TIA), and cerebral infarction without residual deficits; Z90.49 Acquired absence of other specified parts of digestive tract; Z90.710 Acquired absence of both cervix and uterus; Z83.3 Family history of diabetes mellitus; Z98.84 Bariatric surgery status; Z82.3 Family history of stroke; Z82.49 Family history of ischemic heart disease and other diseases of the circulatory system; Z87.11 Personal history of peptic ulcer disease; Z79.4 Long term (current) use of insulin; Z68.33 Body mass index [BMI] 33.0-33.9, adult; N30.00 Acute cystitis without hematuria
CPT/HCPCS: 36415; 70450; 71045; 72131; 72148; 76775; 80053; 80061; 80307; 81001; 82140; 82306; 82607; 82962; 83036; 83605; 83690; 83735; 84100; 84443; 85025; 85610; 85730; 86141; 87040; 87086; 93306; 93886; 93970; 96365; 96367; 97110; 97116; 97163; G0378; J1815; J1956; J2470